=== PATIENT | female | born 1945 | race Two or more races ===

== ENCOUNTER 2025-05-07 08:41 | Emergency (ER) | payer OTHER ==
[~2025-05-07] VITALS: Ht 157.5 cm; Wt 44.9 kg
[2025-05-07] MEDS ORDERED: TOPROL XL25 M1 (08:57)
[2025-05-07] MEDS ORDERED: METFORMIN HCL500 M3 (08:57)
[2025-05-07] MEDS ORDERED: AMIODARONE HCL100 MG (08:57)
[2025-05-07] MEDS ORDERED: ELIQUIS5 MG PO (08:57)
[2025-05-07] MEDS ORDERED: LIPITOR20 MG (08:57)
[2025-05-07 08:58] VITALS: BP 146/61; O2SAT 98
[2025-05-07] MEDS ORDERED: ARTHRITIS PAIN150 G1 TOP (13:00)
== END 2025-05-07 13:47 | disposition home or self-care (01) ==
LOC: ER 08:41
DX: M79.604 Pain in right leg (principal); M25.559 Pain in unspecified hip; E11.9 Type 2 diabetes mellitus without complications; Z79.84 Long term (current) use of oral hypoglycemic drugs